=== PATIENT | male | born 1950 | race Caucasian/White ===

== ENCOUNTER 2022-06-01 12:26 | Inpatient (IN) | payer MEDICARE, MEDICAID ==
[~2022-06-01] VITALS: Ht 177.8 cm; Wt 77.6 kg
[2022-06-01] MEDS ORDERED: VISCOUS LIDOCAINE 2% 15 ML UDC PO STA (12:41)
[2022-06-01] MEDS ORDERED: MAGNESIUM/ALUMINUM HYDROXIDE/SIMETHICONE 30ML UDC PO STA (12:41)
[2022-06-01] MEDS ORDERED: ONDANSETRON HCL 4MG/2ML INJ IV STA (12:41)
[2022-06-01] MEDS ORDERED: SODIUM CHLORIDE 0.9% 1,000 ML IV ONE (12:45)
[2022-06-01 15:04] LABS: HEMATOCRIT. 32.6 % (42.0-52.0); HEMOGLOBIN. 10.5 g/dL (14.0-18.0); MEAN CORPUSCULAR HEMOGLOBIN 36.5 pg (28.0-32.0); MEAN CORPUSCULAR VOLUME 113.4 fL (80.0-94.0); MEAN PLATELET VOLUME 10.7 fl (7.4-10.4); PLATELET 131 x1000/uL (130-400); RED BLOOD CELL COUNT 2.87 mill/uL (4.7-6.1); RED CELL DISTRIBUTION WIDTH 14.9 % (11.6-14.6)
[2022-06-01 15:34] LABS: CHLORIDE 105 mEq/L (98-107)
[2022-06-01] MEDS ORDERED: ONDANSETRON HCL 4MG/2ML INJ IV NR (15:45)
[2022-06-01] MEDS ORDERED: MAGNESIUM/ALUMINUM HYDROXIDE/SIMETHICONE 30ML UDC PO NR (15:45)
[2022-06-01] MEDS ORDERED: VISCOUS LIDOCAINE 2% 15 ML UDC PO NR (15:45)
[2022-06-01 16:04] LABS: ETHANOL BLOOD 140 mg/dL
[2022-06-01 16:17] LABS: NUCLEATED RED BLOOD CELLS 4 /100 WBC; PLATELET ESTIMATE NORMAL
[2022-06-01] MEDS ORDERED: MORPHINE SULFATE 4 MG/ML CPJ (NOT FOR IM USE) IV NR (16:45)
[2022-06-01] MEDS ORDERED: LACTATED RINGERS 1,000 ML IV ONE (16:45)
[2022-06-01] MEDS ORDERED: SODIUM BICARBONATE 8.4% 1 MEQ/ML 50ML SYR IV NR (16:45)
[2022-06-01] MEDS ORDERED: PANTOPRAZOLE SODIUM 40 MG/VIAL IV NR (17:15)
[2022-06-01] MEDS ORDERED: FOLIC ACID 1 MG, THIAMINE HCL 100 MG, MVI, ADULT NO.1 10 ML in DEXTROSE 5% WATER 1,000 ML IV NR ×4 (17:30)
[2022-06-01 17:38] LABS: TOTAL IRON BINDING CAPACITY 219 ug/dL (250-450)
[2022-06-01 18:37] LABS: VITAMIN B12 SERUM > 2000.0 pg/mL (211-911)
[2022-06-01] MEDS: AMLODIPINE 10MG TABLET PO SCH (22:00)
[2022-06-01] MEDS ORDERED: ACETAMINOPHEN 325MG TABLET PO PRN (22:00)
[2022-06-01] MEDS ORDERED: IPRATROPIUM/ALBUTEROL 0.5-3(2.5)MG/3ML NEB HHN PRN (22:00)
[2022-06-01] MEDS ORDERED: DIPHENHYDRAMINE 50MG/ML VIAL IV PRN (22:00)
[2022-06-01] MEDS ORDERED: GUAIFENESIN 200MG/10ML SUGAR FREE UDC PO PRN (22:00)
[2022-06-01] MEDS ORDERED: MAGNESIUM/ALUMINUM HYDROXIDE/SIMETHICONE 30ML UDC PO PRN (22:00)
[2022-06-01] MEDS: PANTOPRAZOLE SODIUM 40 MG/VIAL IV SCH (22:00)
[2022-06-01] MEDS ORDERED: DOCUSATE SODIUM 100MG CAPSULE PO PRN (22:00)
[2022-06-01] MEDS ORDERED: CLONIDINE 0.1MG TABLET PO PRN (22:00)
[2022-06-01] MEDS ORDERED: ONDANSETRON HCL 4MG/2ML INJ IV PRN (22:00)
[2022-06-01] MEDS ORDERED: MORPHINE SULFATE 2 MG/ML CPJ (NOT FOR IM USE) IV PRN (22:00)
[2022-06-01] MEDS ORDERED: ENOXAPARIN 30MG/0.3ML SYR SUBCUT SCH (22:18)
[2022-06-01 23:39] VITALS: BP 132/88
[2022-06-01] MEDS ORDERED: ALBUTEROL (0.083%) 2.5MG/3ML NEB HHN PRN (23:45)
[2022-06-01] MEDS ORDERED: NALOXONE HCL 0.4MG/ML VIAL IV PRN (23:45)
[2022-06-01] MEDS ORDERED: IPRATROPIUM BROMIDE (0.02%) 0.5MG/2.5ML NEB HHN PRN (23:45)
[2022-06-02 00:28] LABS: CLARITY URINE CLOUDY (CLEAR); COLOR URINE DARK YELLOW (YELLOW); KETONES URINE TRACE (NEGATIVE); LEUKOCYTE ESTERASE URINE 3+ (NEGATIVE); NITRITE URINE NEGATIVE (NEGATIVE); OCCULT BLOOD URINE 2+ (NEGATIVE); PH URINE 7.5 (4.5-8.0); PROTEIN URINE 2+ (NEGATIVE); SPECIFIC GRAVITY URINE 1.023 (1.005-1.030)
[2022-06-02 01:15] LABS: *AMPHETAMINES SCREEN URINE NEGATIVE (NEGATIVE); *BARBITURATES SCREEN URINE NEGATIVE (NEGATIVE); *BENZODIAZEPINES SCREEN URINE NEGATIVE (NEGATIVE); *COCAINE SCREEN URINE NEGATIVE (NEGATIVE); CANNABINOID URINE SCREEN NEGATIVE (NEGATIVE); METHADONE URINE SCREEN NEGATIVE (NEGATIVE); OPIATES URINE SCREEN PRESUMTIVE POSITIVE (NEGATIVE); PHENCYCLIDINE URINE SCREEN NEGATIVE (NEGATIVE)
[2022-06-02 02:55] LABS: CREATINE KINASE 307 IU/L (39-308); CREATINE KINASE MB FRACTION 19.2 ng/mL (0.5-3.6)
[2022-06-02 03:19] LABS: AMYLASE 125 IU/L (25-115)
[2022-06-02 04:00] VITALS: BP 130/74
[2022-06-02 06:21] LABS: HEMATOCRIT. 27.8 % (42.0-52.0); HEMOGLOBIN. 9.3 g/dL (14.0-18.0); MEAN CORPUSCULAR HEMOGLOBIN 35.7 pg (28.0-32.0); MEAN CORPUSCULAR VOLUME 107.3 fL (80.0-94.0); PLATELET 89 x1000/uL (130-400); RED BLOOD CELL COUNT 2.59 mill/uL (4.7-6.1); RED CELL DISTRIBUTION WIDTH 14.4 % (11.6-14.6)
[2022-06-02 06:43] LABS: CHLORIDE 104 mEq/L (98-107)
[2022-06-02 07:01] LABS: CREATINE KINASE 277 IU/L (39-308); CREATINE KINASE MB FRACTION 18.7 ng/mL (0.5-3.6); HDL CHOLESTEROL 87 mg/dL (40-59); LDL CHOLESTEROL 25 mg/dL (5-100); T4 FREE 1.15 ng/dL (0.76-1.46)
[2022-06-02 08:00] VITALS: BP 138/59
[2022-06-02 09:42] LABS: PLATELET ESTIMATE SLIGHTLY DECREASED
[2022-06-02] MEDS: SODIUM CHLORIDE 0.9% 1,000 ML IV SCH ×2 (10:45→21:40)
[2022-06-02] MEDS: AMLODIPINE 10MG TABLET PO SCH (10:56)
[2022-06-02] MEDS: PANTOPRAZOLE SODIUM 40 MG/VIAL IV SCH (10:56)
[2022-06-02] MEDS ORDERED: GUAIFENESIN 200MG/10ML SUGAR FREE UDC PO PRN (11:15)
[2022-06-02 12:00] VITALS: BP 117/57
[2022-06-02] MEDS ORDERED: MVI, ADULT NO.1 10 ML, FOLIC ACID 1 MG, THIAMINE HCL 100 MG in SODIUM CHLORIDE 0.9% 1,0... IV ONE ×4 (13:00)
[2022-06-02 13:45] LABS: HEMATOCRIT. 26.3 % (42.0-52.0); HEMOGLOBIN. 8.7 g/dL (14.0-18.0); MEAN CORPUSCULAR HEMOGLOBIN 35.6 pg (28.0-32.0); MEAN CORPUSCULAR VOLUME 107.3 fL (80.0-94.0); MEAN PLATELET VOLUME 10.7 fl (7.4-10.4); PLATELET 83 x1000/uL (130-400); RED BLOOD CELL COUNT 2.45 mill/uL (4.7-6.1); RED CELL DISTRIBUTION WIDTH 14.3 % (11.6-14.6)
[2022-06-02 13:52] LABS: CHLORIDE 105 mEq/L (98-107)
[2022-06-02 14:15] LABS: CREATINE KINASE 211 IU/L (39-308)
[2022-06-02 14:26] LABS: NUCLEATED RED BLOOD CELLS 3 /100 WBC; PLATELET ESTIMATE DECREASED
[2022-06-02] MEDS: ACETAMINOPHEN 325MG TABLET PO PRN ×2 (15:28→21:40)
[2022-06-02] MEDS ORDERED: CEFTRIAXONE 1 G PREMIX 50 ML IV SCH (15:30)
[2022-06-02 16:00] VITALS: BP 120/51
[2022-06-02] MEDS: CEFTRIAXONE 1,000 MG in DEXTROSE 5% WATER 50 ML IV SCH (17:14)
[2022-06-02 20:00] VITALS: BP 117/55
[2022-06-03] VITALS: BP 125/70
[2022-06-03 04:00] VITALS: BP 134/62
[2022-06-03] MEDS: ACETAMINOPHEN 325MG TABLET PO PRN ×2 (05:43→12:35)
[2022-06-03 07:36] LABS: BASOPHILS % 0.1 % (0.0-2.0); EOSINOPHILS % 0.4 % (0.0-5.0); HEMATOCRIT. 26.7 % (42.0-52.0); HEMOGLOBIN. 8.9 g/dL (14.0-18.0); LYMPHOCYTES % 8.3 % (20.0-50.0); MEAN CORPUSCULAR HEMOGLOBIN 35.7 pg (28.0-32.0); MEAN CORPUSCULAR VOLUME 107.6 fL (80.0-94.0); MEAN PLATELET VOLUME 10.6 fl (7.4-10.4); NEUTROPHILS % 79.2 % (40.0-76.0); PLATELET 75 x1000/uL (130-400); RED BLOOD CELL COUNT 2.48 mill/uL (4.7-6.1); RED CELL DISTRIBUTION WIDTH 14.5 % (11.6-14.6)
[2022-06-03 07:46] LABS: INR 1.2; PROTHROMBIN TIME 12.4 sec (9.6-11.0)
[2022-06-03 07:53] VITALS: BP 132/65
[2022-06-03] MEDS: FOLIC ACID 1MG TABLET PO SCH (08:25)
[2022-06-03] MEDS: THIAMINE HCL 100MG TABLET PO SCH ×3 (08:25→18:17)
[2022-06-03] MEDS: AMLODIPINE 10MG TABLET PO SCH (08:25)
[2022-06-03 11:53] VITALS: BP 129/69
[2022-06-03] MEDS: SODIUM CHLORIDE 0.9% 1,000 ML IV SCH ×2 (12:32→21:10)
[2022-06-03 16:02] VITALS: BP 134/74
[2022-06-03] MEDS: CEFTRIAXONE 1,000 MG in DEXTROSE 5% WATER 50 ML IV SCH (18:16)
[2022-06-03 20:00] VITALS: BP 124/79
[2022-06-03] MEDS: FAMOTIDINE 20MG TABLET PO SCH (21:06)
[2022-06-03] MEDS: HYDROCODONE/ACETAMINOPHEN 5/325MG TABLET PO PRN (21:07)
[2022-06-04] VITALS: BP 137/70
[2022-06-04] MEDS: GUAIFENESIN 200MG/10ML SUGAR FREE UDC PO PRN ×2 (00:23→04:30)
[2022-06-04 04:00] VITALS: BP 156/68
[2022-06-04] MEDS: HYDROCODONE/ACETAMINOPHEN 5/325MG TABLET PO PRN (04:30)
[2022-06-04 06:29] LABS: HEMATOCRIT. 25.9 % (42.0-52.0); HEMOGLOBIN. 8.6 g/dL (14.0-18.0); MEAN CORPUSCULAR HEMOGLOBIN 35.6 pg (28.0-32.0); MEAN CORPUSCULAR VOLUME 107.2 fL (80.0-94.0); MEAN PLATELET VOLUME 10.2 fl (7.4-10.4); PLATELET 66 x1000/uL (130-400); RED BLOOD CELL COUNT 2.42 mill/uL (4.7-6.1); RED CELL DISTRIBUTION WIDTH 14.7 % (11.6-14.6)
[2022-06-04 07:20] LABS: CHLORIDE 110 mEq/L (98-107)
[2022-06-04 07:32] LABS: PHOSPHORUS 2.7 mg/dL (2.5-4.9)
[2022-06-04 08:00] VITALS: BP 158/81
[2022-06-04] MEDS: FOLIC ACID 1MG TABLET PO SCH (08:50)
[2022-06-04] MEDS: THIAMINE HCL 100MG TABLET PO SCH ×3 (08:50→17:24)
[2022-06-04] MEDS: AMLODIPINE 10MG TABLET PO SCH (08:51)
[2022-06-04 12:00] VITALS: BP 122/68
[2022-06-04] MEDS ORDERED: MENTHOL/LANOLIN/CALAMINE/ZN OX OINT 71GM TOP PRN (12:30)
[2022-06-04 13:29] LABS: NUCLEATED RED BLOOD CELLS 3 /100 WBC; PLATELET ESTIMATE DECREASED
[2022-06-04] MEDS: CHLORDIAZEPOXIDE 5 MG CAPSULE PO PRN ×2 (14:14→22:47)
[2022-06-04] MEDS: SODIUM CHLORIDE 0.9% 1,000 ML IV SCH (14:14)
[2022-06-04 16:00] VITALS: BP 128/79
[2022-06-04] MEDS: CEFTRIAXONE 1,000 MG in DEXTROSE 5% WATER 50 ML IV SCH (17:25)
[2022-06-04 20:00] VITALS: BP 157/80
[2022-06-04] MEDS: FAMOTIDINE 20MG TABLET PO SCH (20:16)
[2022-06-05] VITALS: BP 154/74
[2022-06-05] MEDS: HYDROCODONE/ACETAMINOPHEN 5/325MG TABLET PO PRN ×2 (00:33→20:40)
[2022-06-05] MEDS: SODIUM CHLORIDE 0.9% 1,000 ML IV SCH ×2 (00:38→15:09)
[2022-06-05 04:00] VITALS: BP 145/79
[2022-06-05] MEDS: ACETAMINOPHEN 325MG TABLET PO PRN (06:23)
[2022-06-05 08:00] VITALS: BP 135/68
[2022-06-05] MEDS: THIAMINE HCL 100MG TABLET PO SCH ×3 (08:58→16:55)
[2022-06-05] MEDS: FOLIC ACID 1MG TABLET PO SCH (08:58)
[2022-06-05] MEDS: AMLODIPINE 10MG TABLET PO SCH (09:00)
[2022-06-05 10:22] LABS: BASOPHILS % 0.2 % (0.0-2.0); EOSINOPHILS % 0.7 % (0.0-5.0); HEMATOCRIT. 24.9 % (42.0-52.0); HEMOGLOBIN. 8.3 g/dL (14.0-18.0); LYMPHOCYTES % 8.3 % (20.0-50.0); MEAN CORPUSCULAR HEMOGLOBIN 35.3 pg (28.0-32.0); MEAN CORPUSCULAR VOLUME 106.5 fL (80.0-94.0); MONOCYTES % 13.4 % (2.0-8.0); NEUTROPHILS % 77.4 % (40.0-76.0); PLATELET 69 x1000/uL (130-400); RED BLOOD CELL COUNT 2.34 mill/uL (4.7-6.1)
[2022-06-05 10:31] LABS: CHLORIDE 111 mEq/L (98-107)
[2022-06-05 10:40] LABS: PHOSPHORUS 2.5 mg/dL (2.5-4.9)
[2022-06-05 12:00] VITALS: BP 128/74
[2022-06-05 13:07] LABS: ANTI-NUCLEAR ANTIBODIES DIRECT Negative (Negative)
[2022-06-05] MEDS: MENTHOL/LANOLIN/CALAMINE/ZN OX OINT 71GM TOP SCH ×2 (13:12→16:56)
[2022-06-05] MEDS ORDERED: MAGNESIUM 2 G PREMIX 50 ML IV SCH (14:00)
[2022-06-05 16:00] VITALS: BP 143/91
[2022-06-05] MEDS ORDERED: MAGNESIUM 1 G PREMIX 100 ML IV SCH (16:00)
[2022-06-05] MEDS: CEFTRIAXONE 1,000 MG in DEXTROSE 5% WATER 50 ML IV SCH (16:55)
[2022-06-05 20:00] VITALS: BP 155/83
[2022-06-05] MEDS: FAMOTIDINE 20MG TABLET PO SCH (20:39)
[2022-06-06] VITALS: BP 165/87
[2022-06-06] MEDS: ACETAMINOPHEN 325MG TABLET PO PRN (00:31)
[2022-06-06 04:00] VITALS: BP 117/84
[2022-06-06] MEDS: SODIUM CHLORIDE 0.9% 1,000 ML IV SCH (05:11)
[2022-06-06 05:46] LABS: HEMATOCRIT. 25.1 % (42.0-52.0); HEMOGLOBIN. 8.3 g/dL (14.0-18.0); MEAN CORPUSCULAR HEMOGLOBIN 35.5 pg (28.0-32.0); MEAN CORPUSCULAR VOLUME 106.8 fL (80.0-94.0); MEAN PLATELET VOLUME 9.9 fl (7.4-10.4); PLATELET 75 x1000/uL (130-400); RED BLOOD CELL COUNT 2.35 mill/uL (4.7-6.1); RED CELL DISTRIBUTION WIDTH 14.8 % (11.6-14.6)
[2022-06-06 08:00] VITALS: BP 154/80
[2022-06-06 08:34] LABS: CHLORIDE 112 mEq/L (98-107)
[2022-06-06 08:47] LABS: PHOSPHORUS 2.6 mg/dL (2.5-4.9)
[2022-06-06 08:53] LABS: NUCLEATED RED BLOOD CELLS 4 /100 WBC; PLATELET ESTIMATE DECREASED
[2022-06-06] MEDS: THIAMINE HCL 100MG TABLET PO SCH ×3 (09:33→17:20)
[2022-06-06] MEDS: AMLODIPINE 10MG TABLET PO SCH (09:33)
[2022-06-06] MEDS: MENTHOL/LANOLIN/CALAMINE/ZN OX OINT 71GM TOP SCH ×2 (09:33→17:21)
[2022-06-06] MEDS: FOLIC ACID 1MG TABLET PO SCH (09:33)
[2022-06-06] MEDS ORDERED: MAGNESIUM OXIDE 400MG TABLET PO SCH (10:30)
[2022-06-06 12:00] VITALS: BP 160/75
[2022-06-06 15:03] VITALS: BP 158/73
[2022-06-06 16:00] VITALS: BP 150/71
[2022-06-06] MEDS: CEFTRIAXONE 1,000 MG in DEXTROSE 5% WATER 50 ML IV SCH (17:20)
== END 2022-06-06 19:00 | DRG 438 ==
LOC: ER 12:26 → EDBEDREQ 17:08 → MICUSO 20:15 → EDBEDREQTM 20:40 → EDBEDREQ 20:40 → 6WST 23:41 → 7WST 23:43
PROVIDERS: ADMIT Hospitalist; ATTEND Hospitalist
DX: K85.90 Acute pancreatitis without necrosis or infection, unspecified (principal); E43 Unspecified severe protein-calorie malnutrition; N17.0 Acute kidney failure with tubular necrosis; N39.0 Urinary tract infection, site not specified; D53.9 Nutritional anemia, unspecified; Z59.00 Homelessness unspecified; K57.30 Diverticulosis of large intestine without perforation or abscess without bleeding; F17.210 Nicotine dependence, cigarettes, uncomplicated; E86.9 Volume depletion, unspecified; F10.229 Alcohol dependence with intoxication, unspecified; I10 Essential (primary) hypertension; K70.9 Alcoholic liver disease, unspecified; R74.01 Elevation of levels of liver transaminase levels; D50.9 Iron deficiency anemia, unspecified; Z82.49 Family history of ischemic heart disease and other diseases of the circulatory system; Y08.89XA Assault by other specified means, initial encounter; Y93.89 Activity, other specified; Y92.89 Other specified places as the place of occurrence of the external cause; Y99.8 Other external cause status; Z68.24 Body mass index [BMI] 24.0-24.9, adult; Z20.822 Contact with and (suspected) exposure to COVID-19
CPT/HCPCS: 36415; 71045; 74177; 76700; 80048; 80053; 80061; 80305; 80320; 81003; 82150; 82248; 82550; 82553; 82607; 82746; 83036; 83540; 83550; 83735; 84100; 84134; 84439; 84443; 84484; 85025; 86038; 86160; 86850; 86900; 87077; 87186; 87426; 93005; 93306; 93970; 97162; 97166; 97530; 99285; A6261; C9113; J0696; J1200; J1650; J2270; J2405; J3411; J3475; J3490; J7030; J7060; J7070; G0480

== ENCOUNTER 2022-07-09 13:46 | Emergency (ER) | payer MEDICARE, MEDICAID ==
[~2022-07-09] VITALS: Ht 182.9 cm; Wt 78.0 kg
[2022-07-09] MEDS ORDERED: OFLO5DRO3 EACHEYE (14:25)
[2022-07-09 21:00] VITALS: BP 142/56
== END 2022-07-09 22:29 | disposition home or self-care (01) ==
LOC: ER 14:24
DX: H10.9 Unspecified conjunctivitis (principal); I10 Essential (primary) hypertension; F10.229 Alcohol dependence with intoxication, unspecified; Y90.0 Blood alcohol level of less than 20 mg/100 ml
CPT/HCPCS: 99283